=== PATIENT | male | born 1955 | race Caucasian/White ===

== ENCOUNTER → 2017-02-20 | Day surgery (SDC) | payer OTHER ==
[~2017-02-20] MED LIST: ALDA100T PO; FURO40TA PO; HYDR-3533 PO; LACTATED RINGER'S 1000 ML INJ 1,000 ML ONE; LEVOFLOXACIN 500 MG PREMIX INJ 100 ML IV ONE; PENVK500 PO; PROPOFOL 100 MG/10 ML INJ IV ONE
--- NOTE | 2017-02-20 11:00 | GIPROC ---
[facility] [address] [facility] [place], [address] EGD PROCEDURE REPORT EXAM DATE: 02/20/2017 PATIENT NAME: Son Sanders MR #: [id number] BIRTHDATE: 1955 ATTENDING: Katie Reyna MD ORDER #: [id number] MICROBIOLOGY TECHNICIAN: STATUS: outpatient INDICATIONS: The patient is a 61 yr old male here for an EGD due to liver cirrhosis history of esophageal varices screening for varices and possible banding PROCEDURE PERFORMED: EGD w/ biopsy MEDICATIONS: None and Per Anesthesia. TOPICAL ANESTHETIC: none CONSENT: The patient understands the risks and benefits of the procedure and understands that these risks include, but are not limited to: sedation, allergic reaction, infection, perforation and/or bleeding. Alternative means of evaluation and treatment include, among others: physical exam, x-rays, and/or surgical intervention. The patient elects to proceed with this endoscopic procedure. medical equipment was checked for proper function. Hand hygiene and appropriate measures for infection prevention was taken. After the risks, benefits and alternatives of the procedure were thoroughly explained, Informed consent was verified, confirmed and timeout was successfully executed by the treatment team. The patient was anesthetized with topical anesthesia and the EG-[id number] ([id number]) and [id number] ([id number]) endoscope was introduced through the mouth and advanced to the second portion of the duodenum. Retroflexed views revealed a hiatal hernia The gastroscope was then slowly withdrawn and removed. Gastrits antrum-biopsy portal gastropathy -biopsy duodenitis /duodenal bulb superficial ulcers-biopsy grade 1 varices -no need for banding at this point. ADVERSE EVENTS: There were no complications. IMPRESSIONS: 1. Gastrits antrum-biopsy portal gastropathy -biopsy duodenitis /duodenal bulb superficial ulcers-biopsy grade 1 varices -no need for banding at this point 2. Retroflexed views revealed a hiatal hernia RECOMMENDATIONS: 1. Await biopsy results. Biopsy results will not be ready for 7-10 days. If you don't hear from us in two weeks, call our office for biopsy results. 2. Anti-reflux regimen 3. Continue PPI 4. Avoid NSAIDS PATIENT CONDITION: stable DISPOSITION: Home REPEAT EXAM: Return 6 months EGD Katie Reyna MD eSigned: Katie Reyna MD 02/20/2017 11:00 AM cc: Selena Jose PATIENT NAME: Son Sanders MR#: [id number]
== END | disposition home or self-care (01) ==
LOC: ESDC 07:50
PROVIDERS: ATTEND Internal Medicine Gastroenterology
DX: K74.60 Unspecified cirrhosis of liver (principal); I85.00 Esophageal varices without bleeding; K44.9 Diaphragmatic hernia without obstruction or gangrene; K29.70 Gastritis, unspecified, without bleeding; K76.6 Portal hypertension; K31.89 Other diseases of stomach and duodenum; K29.80 Duodenitis without bleeding
CPT/HCPCS: 00740; 43239; 88305; 88312; J1956; J3010; J7120